=== PATIENT | female | born 1950 | race Caucasian/White ===

== ENCOUNTER → 2018-03-19 | Outpatient (CLI) | LOC: GIMAGING 17:56 | PROVIDERS: ATTEND Registered Nurse | DX: S52.591A Other fractures of lower end of right radius, initial encounter for closed fracture (principal) | CPT/HCPCS: 73110-PO; 73130-PO ==

== ENCOUNTER → 2018-04-02 | Outpatient (CLI) | payer OTHER, BC | LOC: BMCIMAGING 14:51 | PROVIDERS: ATTEND Orthopaedic Surgery | DX: S52.501D Unspecified fracture of the lower end of right radius, subsequent encounter for closed fracture with routine healing (principal) ==

== ENCOUNTER → 2018-05-05 | Outpatient (CLI) | payer OTHER, BC | LOC: BMCIMAGING 13:45 | PROVIDERS: ATTEND Orthopaedic Surgery | DX: S52.501D Unspecified fracture of the lower end of right radius, subsequent encounter for closed fracture with routine healing (principal) ==

== ENCOUNTER → 2018-08-15 | Outpatient (CLI) | payer OTHER, BC | LOC: BMCIMAGING 11:22 | PROVIDERS: ATTEND Family Medicine Geriatric Medicine | DX: Z13.820 Encounter for screening for osteoporosis (principal); M85.89 Other specified disorders of bone density and structure, multiple sites; Z78.0 Asymptomatic menopausal state ==